=== PATIENT | female | born 1940 | race Caucasian/White ===

== ENCOUNTER → 2020-10-20 07:00 | Outpatient (CLI) | payer MEDICARE, SELFPAY ==
[2020-10-20 21:06] LABS: SARS-CoV-2 RNA PCR Negative
== END ==
PROVIDERS: PCP Internal Medicine
DX: R68.89 Other general symptoms and signs (principal); Z20.822 Contact with and (suspected) exposure to COVID-19
CPT/HCPCS: C9803; U0003; U0005